=== PATIENT | male | born 1950 | race Caucasian/White ===

== ENCOUNTER 2018-12-15 13:10 | Emergency (ER) | payer MEDICARE, MEDICAID ==
[~2018-12-15] VITALS: Ht 172.7 cm; Wt 93.8 kg
[~2018-12-15 13:10] MED LIST: AMLO10TA PO; ASPI-611 PO; ATOR20TA PO; CLOP75TA35 PO; LISI-600 PO; METF500T7 PO; SAXA5TAB PO
[2018-12-15 13:13] VITALS: BP 139/70
[2018-12-15] MEDS ORDERED: ONDA4TAB6 PO (13:41)
[2018-12-15] MEDS ORDERED: DOXY100T2 PO (13:41)
[2018-12-15] MEDS ORDERED: bacitracin 15gm ointment TP ONE (13:45)
[2018-12-15] MEDS ORDERED: TETanus/Pertussis (Acell)/Diphther VAC/PF (Tdap-Adult) 0.5ml syringe IM ONE (13:45)
== END 2018-12-15 14:34 | disposition home or self-care (01) ==
LOC: ER 13:11
DX: S40.851A Superficial foreign body of right upper arm, initial encounter (principal); E78.00 Pure hypercholesterolemia, unspecified; I10 Essential (primary) hypertension; I25.2 Old myocardial infarction; J44.9 Chronic obstructive pulmonary disease, unspecified; E11.9 Type 2 diabetes mellitus without complications; F12.90 Cannabis use, unspecified, uncomplicated; Z98.61 Coronary angioplasty status; Z98.890 Other specified postprocedural states; Z56.0 Unemployment, unspecified; Z79.899 Other long term (current) drug therapy; W57.XXXA Bitten or stung by nonvenomous insect and other nonvenomous arthropods, initial encounter; Y93.89 Activity, other specified; Y92.89 Other specified places as the place of occurrence of the external cause; Y99.8 Other external cause status
CPT/HCPCS: 10060; 10120; 90471; 90715; 99283; 99284

== ENCOUNTER 2022-11-11 07:16 | Emergency (ER) | payer MEDICARE, MEDICAID ==
[~2022-11-11] VITALS: Ht 172.7 cm; Wt 90.9 kg
[~2022-11-11 07:16] MED LIST changes: +CLOP75TA34 PO; -CLOP75TA35 PO; +DOXY100T2 PO; -LISI-600 PO; +LISI20TA28 PO; +METF-900 PO; -METF500T7 PO; +ONDA4TAB6 PO
[2022-11-11 07:39] LABS: BASOPHILS # (AUTO) 0.1 X10'3 (0-0.2); BASOPHILS % (AUTO) 0.5 % (0-1); EOSINOPHILS # (AUTO) 0.3 X10'3 (0-0.9); EOSINOPHILS % (AUTO) 2.4 % (0-6); LYMPHOCYTES # (AUTO) 1.2 X10'3 (1.1-4.8); LYMPHOCYTES % (AUTO) 10.3 % (21-51); MEAN CORPUSCULAR HEMOGLOBIN 33.4 PG (27.0-31.0); MEAN CORPUSCULAR HGB CONC 33.4 g/dL (33.0-36.5); MEAN CORPUSCULAR VOLUME 99.9 FL (78-98); MEAN PLATELET VOLUME 7.6 FL (7.4-10.4); MONOCYTES # (AUTO) 1.1 X10'3 (0-0.9); MONOCYTES % (AUTO) 9.5 % (2-12); NEUTROPHILS # (AUTO) 8.8 X10'3 (1.8-7.7); NEUTROPHILS % (AUTO) 77.3 % (42-75); PLATELET COUNT 325 X10'3 (140-440); RED CELL DISTRIBUTION WIDTH 14.6 % (11.5-14.5); WHITE BLOOD COUNT 11.4 X10'3 (4.5-11.0)
[2022-11-11 07:54] LABS: ALANINE AMINOTRANSFERASE 40 U/L (12-78); ALBUMIN 3.5 G/DL (3.4-5.0); ALBUMIN/GLOBULIN RATIO 0.8 (1.1-1.5); ALKALINE PHOSPHATASE 86 IU/L (46-116); ANION GAP 8 (8-16); ASPARTATE AMINO TRANSFERASE 24 U/L (10-37); BILIRUBIN,TOTAL 0.4 MG/DL (0.1-1.0); BLOOD UREA NITROGEN 21 MG/DL (7-18); BUN/CREATININE RATIO 20.8 (5.4-32.0); CALCIUM 9.3 MG/DL (8.5-10.1); CHLORIDE 102 MMOL/L (99-107); CREATININE 1.01 MG/DL (0.60-1.10); GLUCOSE 221 MG/DL (70-104); POTASSIUM 4.4 MMOL/L (3.5-5.1); SODIUM 137 MMOL/L (135-145); TOTAL CARBON DIOXIDE 27.4 MMOL/L (24-32); eGFR 73 ML/MIN
[2022-11-11 08:02] LABS: MAGNESIUM 1.9 MG/DL (1.5-2.4)
--- NOTE | 2022-11-11 08:02 | NUR ---
Denies chest pain at this time,awaiting for ED MD. Call light within reach, spouse at bedside.
[2022-11-11] MEDS ORDERED: PANT20TA2 PO (11:07)
--- NOTE | 2022-11-11 11:37 | NUR ---
Pt D/Servando home with discharge instructions and prescription for Pantoprazole, which was called to preferred pharmacy. Pt seen and evaluated for CP. CP completely subsided at time of D/C. Pt instructed to f/u with PCP and director software development and to return to ED with new or worsening symptoms. No IV.
[2022-11-11 11:43] VITALS: BP 122/70
== END 2022-11-11 11:45 | disposition home or self-care (01) ==
LOC: ER 07:16
DX: R07.89 Other chest pain (principal); M25.512 Pain in left shoulder; I11.0 Hypertensive heart disease with heart failure; E78.00 Pure hypercholesterolemia, unspecified; J44.9 Chronic obstructive pulmonary disease, unspecified; E11.9 Type 2 diabetes mellitus without complications; Z91.041 Radiographic dye allergy status; Z88.8 Allergy status to other drugs, medicaments and biological substances; Z88.1 Allergy status to other antibiotic agents; Z88.6 Allergy status to analgesic agent; Z87.891 Personal history of nicotine dependence; Z56.0 Unemployment, unspecified
CPT/HCPCS: 36415; 71045; 80053; 83735; 83880; 84484; 85025; 93005; 99285